=== PATIENT | male | born 2000 | race Caucasian/White ===

== ENCOUNTER 2018-07-23 06:45 | Emergency (ER) | payer OTHER | END 2018-07-23 09:39 | disposition home or self-care (01) | LOC: JER 06:45 ==

== ENCOUNTER 2020-02-20 01:44 | Emergency (ER) | payer SELFPAY ==
[2020-02-20 01:54] VITALS: BP 124/82; PULSE 88; TEMP 98.1; BMI 37.8
--- NOTE | 2020-02-20 01:56 | PDOC ---
History of Present Illness - General Chief Complaint: Overdose Stated Complaint: OVERDOSE History Source: Patient, EMS - History of Present Illness Initial Comments: Pt is a 19 yo M, with PMH of asthma, who is presenting after being found down on the floor by family members in the bathroom. Pt states he was "working too much" and then fell onto the ground. Pt denies using drugs or alcohol. Family called EMS. EMS provided 2 mg IN narcan, and 2 mg IV narcan "for pinpoint pupils" and then the pt woke up. Pt refused all further medical work-up on arrival. Pt is A/O x3, walking steadily on his feet. BGM 225. 02/20/20 02:01 Past History - Medical History Allergies/Adverse Reactions: Allergies Allergy/AdvReac Type Severity Reaction Status Date / Time No Known Allergies Allergy Verified 02/20/20 01:52 Home Medications: Ambulatory Orders Albuterol 0.083% Nebulizer Aparna [Ventolin 0.083% Nebulizer Soln -] 1 neb NEB Q4H PRN #30 vial 07/23/18 Albuterol Sulfate Inhaler - [Ventolin HFA Inhaler -] 1 - 2 inh PO QID 07/23/18 Azithromycin [Zithromax 250mg Tablets -] 250 mg PO UTDICT #6 tab 07/23/18 Fluticasone/Salmeterol [Advair 250-50 Diskus] 1 inh IN BID 07/23/18 Asthma: Yes COPD: No - Psycho-Social/Smoking History Smoking History: Current some day smoker Have you smoked in the past 12 months: Yes Number of Cigarettes Smoked Daily: 10 Information on smoking cessation initiated: No - Substance Abuse Hx (Audit-C & DAST Scrn) How often the patient has a drink containing alcohol: Monthly or less Number of drinks the patient has on a typical day: 1 or 2 How often the patient has six or more drinks on one occasion: Less than monthly Score: In Men: 4 or > Positive; In Women: 3 or > Positive: 2 Screen Result (Pos requires Nsg. Audit-10AR): Negative In the last yr the pt used illegal drug/Rx for NonMed reason: Yes Score: Yes response is considered Positive: 1 Screen Result (Positive result requires Nsg. DAST-10): Positive *Physical Exam - Vital Signs Last Vital Signs Temp Pulse Resp BP Pulse Ox 98.1 F 88 20 124/82 96 02/20/20 01:47 02/20/20 01:47 02/20/20 01:47 02/20/20 01:47 02/20/20 01:47 Medical Decision Making - Medical Decision Making Note: The patient insists on leaving the emergency dept and is signing out against medical advice. The patient understands the risks and complications that may result from the refusal of medical care and admission which includes and permanent disability. The patient has the mental capacity of understanding the risks of refusing care and is capable of making an informed decision. The patient was instructed to return to the emergency department should he change his mind regarding medical care or should his condition worsen. The patient signed the Against Medical Advice form. 02/20/20 02:09 Discharge - Discharge Information Problems reviewed: Yes Clinical Impression/Diagnosis: LOC (loss of consciousness), Unresponsive episode Condition: Stable Disposition: AGAINST MEDICAL ADVICE - Admission No - Follow up/Referral Referrals: [facility] – [place], [place] [facility] [place] [Provider Group] - Patient Discharge Instructions Patient Printed Discharge Instructions: DI for Syncope in Adults (Fainting), DI for Drug Abuse and Drug Addiction, Naloxone Injection Additional Instructions: You were seen in the ER today after being found unresponsive by EMS. You refused a medical evaluation. Please return to the ER if you have any worsening pain, development of fevers or chills, loss of consciousness, inability to tolerate food or fluids, or any other concerns. - Post Discharge Activity
--- NOTE | 2020-02-20 01:57 | PDOC ---
*Physical Exam - Vital Signs Last Vital Signs Temp Pulse Resp BP Pulse Ox 98.1 F 88 20 124/82 96 02/20/20 01:47 02/20/20 01:47 02/20/20 01:47 02/20/20 01:47 02/20/20 01:47 Medical Decision Making - Medical Decision Making 02/20/20 01:55 19-year-old male found unresponsive by family on the floor who rapidly woke up after receiving Narcan by EMS Patient admits to opiate use 24 hours ago but denies this evening Patient is ambulatory, alert and oriented x3 There are no outward signs of trauma He is refusing further medical exam and or evaluation stating he prefers just to go home because he is tired from working too much Fingerstick within normal limits There is no criteria to hold patient against as well at this time, he was advised multiple times by multiple staff members that a medical evaluation including labs and EKG are indicated which he again has refused. He is aware that he may have an undiagnosed medical condition or be at risk for complications including but not limited to permanent disability or . Discharge - Discharge Information Problems reviewed: Yes Clinical Impression/Diagnosis: Unresponsive episode Condition: Fair - Follow up/Referral - Patient Discharge Instructions - Post Discharge Activity
== END 2020-02-20 02:05 | disposition left against medical advice (07) ==
LOC: JER 01:44
DX: R41.82 Altered mental status, unspecified (principal)
CPT/HCPCS: 82962; 99283-25